=== PATIENT | female | born 1990 | race Two or more races ===

== ENCOUNTER 2019-09-05 21:49 | Emergency (ER) | payer OTHER ==
[~2019-09-05] VITALS: Ht 160 cm; Wt 65.9 kg
[~2019-09-05 21:49] MED LIST: NOCURR
[2019-09-05 22:34] LABS: GLUCOSE,POINT OF CARE 97 MG/DL (70-110)
[2019-09-06] MEDS ORDERED: OSELTAMIVIR PHOSPHATE 75 MG CAPSULE PO ONE
[2019-09-06] MEDS ORDERED: ACETAMINOPHEN 325 MG TABLET PO ONE
[2019-09-06 00:38] LABS: INFLUENZA TYPE A POSITIVE FOR TYPE A (NEGATIVE); INFLUENZA TYPE B NEGATIVE FOR TYPE B (NEGATIVE)
[2019-09-06 02:20] VITALS: BP 117/64
== END 2019-09-06 02:20 | disposition home or self-care (01) ==
LOC: EMS 21:51
DX: J11.1 Influenza due to unidentified influenza virus with other respiratory manifestations (principal); F17.210 Nicotine dependence, cigarettes, uncomplicated
CPT/HCPCS: 87804